=== PATIENT | male | born 1955 | race Caucasian/White ===

== ENCOUNTER 2016-11-30 07:18 | Outpatient (CLI) ==
--- NOTE | 2016-11-30 08:54 | US ---
EXAM: Ultrasound abdomen limited right upper quadrant HISTORY: Cirrhosis COMPARISON: 06/28/2015 TECHNIQUE: Limited ultrasound abdomen right upper quadrant was performed FINDINGS: Pancreas is obscured secondary bowel gas shadowing. Liver normal in size. Liver coarsen ed in echogenicity. Redemonstration of geographic hyperechoic region near the gallbladder fossa, no nspecific and may represent focal fat, unchanged. Main portal vein patent with normal direction of f low. There is gallbladder wall thickening. Small stable gallbladder polyp measuring 0.4 cm. No bi liary duct dilation with common bile duct measuring 0.4 cm. Right kidney measures 10.9 cm in length . No hydronephrosis. Right renal cyst measuring 1.4 cm, anechoic/simple IMPRESSION: 1. Coarsened liver echotexture, unchanged and may relate to liver disease or cirrhosis. 2. Nonspecific gallbladder wall thickening and small gallbladder polyp, unchanged. 3. Redemonstration hyperechoic region in the liver near gallbladder that is nonspecific and may rep resent focal fat. No change from prior examination.
== END 2016-11-30 07:19 | disposition home or self-care (01) ==
LOC: RAD 07:18
PROVIDERS: ATTEND Internal Medicine Gastroenterology
DX: K74.69 Other cirrhosis of liver (principal)

== ENCOUNTER 2017-10-23 07:14 | Outpatient (CLI) ==
--- NOTE | 2017-10-23 08:44 | US ---
EXAM: Right upper quadrant abdominal ultrasound. History: Cirrhosis, follow-up Technique: Multiple sonographic images through the abdomen were obtained. Color duplex Doppler was used to interrogate vascular flow. Findings: The liver echotexture is again coarsened. Visualized pancreas demonstrates no gross abnormality. No abdominal ascites. There is antegrade flow within the main portal vein. Incidental 1.7 cm cyst wit hin the right kidney. Nonspecific gallbladder wall thickening similar to the prior study. No change in the triangular hyperechoic area within the liver near the gallbladder measuring about 3.7 cm. No shadowing gallstones. Common bile duct measures 0.5 cm in caliber. 3 mm small gallbladder wall poly p versus cholesterol crystal. Impression: 1. No change in the coarsened liver echotexture could indicate cirrhosis. Also no change in the hyper echoic lesion near the gallbladder fossa could represent focal fat but consider correlation with live r mass MRI protocol for better evaluation of this lesion and the liver in general. 2. Nonspecific gallbladder wall thickening. 3. Small gallbladder wall polyp versus cholesterol crystal. No shadowing gallstones. 4. Small incidental right renal cyst
== END 2017-10-23 07:15 | disposition home or self-care (01) ==
LOC: RAD 07:14
PROVIDERS: ATTEND Internal Medicine Gastroenterology
DX: K74.69 Other cirrhosis of liver (principal)
CPT/HCPCS: 36415; 82105; 85610

== ENCOUNTER 2018-04-24 07:20 | Outpatient (CLI) ==
--- NOTE | 2018-04-24 11:09 | US ---
EXAM: Limited abdominal sonogram. HISTORY: Cirrhosis of liver TECHNIQUE: Real time with duplex. COMPARISON: Right upper quadrant sonogram from 10/23/2017 FINDINGS: The visible pancreas is grossly normal. The hepatic surface contours are nodular and hep atic echogenicity is unchanged. There is a hyperechoic structure adjacent to the gallbladder fossa m easuring 3.3 x 3.1 x 3.3 cm. This is unchanged when compared the prior study. The main portal vein has hepatopetal flow. The gallbladder wall thickness is 4.8 mm. A tiny polyp is suggested in the gall bladder lumen measuring 2.6 mm. No echogenic calculi appreciated. The common duct is 5.7 mm. No ascites is detected. A simple cyst is detected at the interpolar region of the right kidney measu ring 1.3 cm. The right kidney is otherwise normal.. IMPRESSION: Probable focal fat adjacent to the gallbladder fossa, unchanged. This can be confirmed with MRI. Hepatic cirrhosis. Gallbladder wall thickening is likely secondary to the subjacent hepatic parenchymal disease. Tiny polyp in the gallbladder lumen measuring 2.6 mm.
== END 2018-04-24 07:21 | disposition home or self-care (01) ==
LOC: RAD 07:20
PROVIDERS: ATTEND Internal Medicine Gastroenterology
DX: K74.69 Other cirrhosis of liver (principal)
CPT/HCPCS: 36415; 82105

== ENCOUNTER 2018-10-15 14:55 | Outpatient (CLI) ==
--- NOTE | 2018-10-16 08:47 | DI ---
EXAM: Three views of the lumbar spine HISTORY: Back pain. COMPARISON: None FINDINGS: There is no acute compression fracture or subluxation. Trace anterior osteophyte formation . The facets and posterior processes are normal. The lumbosacral junction is intact. The soft tiss ues are normal. IMPRESSION: Minimal anterior disc osteophytes with no acute compression fracture or subluxation.
== END 2018-10-15 14:56 | disposition home or self-care (01) ==
LOC: RAD 14:55
PROVIDERS: ATTEND Internal Medicine
DX: M54.5 Low back pain (principal)